=== PATIENT | female | born 1960 | race Caucasian/White ===

== ENCOUNTER → 2016-12-12 | Outpatient (CLI) | payer OTHER ==
[~2016-12-12] MED LIST: ALPRAZOLAM PO; ASPIRIN PO; AUGMENTIN; BENADRYL25 M1 PO; CALCIUM 500 + D1 TAB PO; CERTAGEN PO; CHOLESTEROL MED; ERYTHROMYCIN O3.5 GM OT; FISH OIL 1,0001 CAP PO; FLEXERIL10 MG PO; LEVAQUIN PO; LORTAB 7.5-5001 TAB PO; NEXIUM PO; PEPCID AC20 M2 PO; PREDNISONE PO; PRILOSEC; PRILOSEC PO; PROTONIX PO; VICODIN 5/1 TAB 5/50 PO; VIT B-12 PO; ZOCOR
--- NOTE | ~2016-12-12 | MY11 ---
[facility] A Service [facility] RADIOLOGY TEXT RESULTS PATIENT: KARLI BAPTISTE LOCATION: [facility] : 56 UNIT #: [id number] AGE: [address]: Denise Munoz MD SEX: F ORDER DR: [id number] [address] [address] [id number] O MR#: [id number] Acc #: [id number] NAME: KARLI BAPTISTE : 1960 SEX: F STUDY DATE/TIME: 12/12/2016 11:00 UNIT: [facility] ROOM: STUDY DESCRIPTION: MY Mammogram Screening Dig [facility] Attending Physician: Denise Munoz M.D. Referring Physician: Denise Munoz M.D. Ordering Physician: Denise Munoz M.D. Primary Care Physician: Nilda Contreras M.D. MEDICAL IMAGING REPORT This report is preliminary unless electronic signature is present. EXAM Digital screening mammogram, 12/12/2016. HISTORY 56-year-old woman; positive family history, maternal grandmother, age 58. Annual screening. COMPARISON STUDIES Comparison mammograms date to 10/31/2008, with most recent 04/09/2012. FINDINGS Digital imaging of each breast was completed, utilizing screening protocol. Review includes FDA-approved CAD device. Breast parenchyma is predominantly fatty replaced in each breast. Benign nodularity in the left breast is unchanged. I see no suspicious mass characteristics or interval occurring microcalcifications and no architectural deformity. IMPRESSION Negative mammogram. Annual screening recommended. Patients over the age of 40 are entered into a reminder system with target due date for the next mammogram. A result letter will also be sent to the patient. BIRADS: 1 Negative Dictated by... [facility] A Service [facility] RADIOLOGY TEXT RESULTS PATIENT: KARLI BAPTISTE LOCATION: [facility] : 56 UNIT #: [id number] AGE: [address]: Denise Munoz MD SEX: F ORDER DR: Garo De La Torre M.D. THIS IS AN ELECTRONICALLY VERIFIED REPORT Garo De La Torre M.D. at 12/12/2016 3:19 PM RADHA/pauline TD: 12/12/2016 14:23 JOB #: [id number] MEDICAL IMAGING REPORT
== END | disposition home or self-care (01) ==
LOC: SMAM 10:29
DX: Z12.31 Encounter for screening mammogram for malignant neoplasm of breast (principal); Z80.3 Family history of malignant neoplasm of breast
CPT/HCPCS: G0202

== ENCOUNTER → 2016-12-22 | Outpatient (CLI) | payer OTHER ==
--- NOTE | ~2016-12-22 | CT138 ---
[facility] A Service of [facility] RADIOLOGY TEXT RESULTS PATIENT: KARLI BAPTISTE LOCATION: [facility] : 56 UNIT #: [id number] AGE: [address]: Eyad Clark MD SEX: F ORDER DR: [id number] [address] [address] [id number] O MR#: [id number] Acc #: [id number] NAME: KARLI BAPTISTE. : 1960 SEX: F STUDY DATE/TIME: 12/22/2016 13:16 UNIT: [facility] ROOM: STUDY DESCRIPTION: CT Lung screening initial Attending Physician: Eyad Clark M.D. Referring Physician: Eyad Clark M.D. Ordering Physician: Eyad Clark M.D. Primary Care Physician: Nidla Contreras M.D. MEDICAL IMAGING REPORT This report is preliminary unless electronic signature is present. EXAM CT lung cancer screening. HISTORY Lung cancer screening. 42-pack/year smoking history. PROCEDURE Unenhanced low dose CT of the chest, performed for lung cancer screening protocol. CTDI 2.96 mGy. Total DLP 108.66 mGy-cm. COMPARISON 02/08/2010 FINDINGS There is a 6-mm nodule in the left upper lobe. There is a 3-mm subpleural nodule in the left lower lobe. No dense consolidation, pleural fluid, or pneumothorax. No adenopathy. 2.1-cm low attenuation region in the segment 2/3 junction of the liver. No acute findings in the included upper abdomen. No aggressive-appearing bone lesion. A 6-mm nodule, left upper lobe, is unchanged from 2010. The left lower lobe nodule is also not significantly changed, dating back to 2009. IMPRESSION Stable nodules in the left upper lobe and left lower lobe, compared with the 2010 study, suggesting a benign finding. No new nodules. Lung-RADS: 2 Benign findings. Per the ACR Lung-RADS recommendation, suggest patient continue with annual low-dose lung cancer screening. [facility] A Service of [facility] RADIOLOGY TEXT RESULTS PATIENT: KARLI BAPTISTE LOCATION: [facility] : 56 UNIT #: [id number] AGE: [address]: Eyad Clark MD SEX: F ORDER DR: Dictated by... Eddie Frye M.D. THIS IS AN ELECTRONICALLY VERIFIED REPORT Eddie Frye M.D. at 12/23/2016 7:35 AM EMILI/pauline TD: 12/22/2016 17:23 JOB #: [id number] MEDICAL IMAGING REPORT Page 1 of 1
== END | disposition home or self-care (01) ==
LOC: SCT 13:15
DX: F17.210 Nicotine dependence, cigarettes, uncomplicated (principal); R91.8 Other nonspecific abnormal finding of lung field
CPT/HCPCS: G0297